=== PATIENT | male | born 1955 | race Two or more races ===

== ENCOUNTER → 2022-05-18 | Day surgery (SDC) | payer OTHER ==
[2022-05-16 12:58] LABS: Basophils # (auto) 0.1 10 ^3/uL (0-0.2); Basophils % (auto) 1.2 % (0.0-2.0); Eosinophils # (auto) 0.2 10 ^3/uL (0-0.8); Eosinophils % (auto) 2.3 % (0.0-7.0); Hemoglobin 12.4 g/dL (13.5-17.5); Lymphocytes # (auto) 2.2 10 ^3/uL (0.4-5.4); Lymphocytes % (auto) 22.9 % (10.0-50.0); Mean Corpuscular Hgb Conc. 31.8 g/dL (32.0-36.0); Mean Corpuscular Volume 62.7 fL (80.0-100.0); Monocytes # (auto) 0.9 10 ^3/uL (0-1.3); Monocytes % (auto) 9.1 % (0.0-12.0); Neutrophils # (auto) 6.1 10 ^3/uL (1.6-8.6); Neutrophils % (auto) 64.5 % (37.0-80.0); Nucleated Red Blood Cells % 0.3 %; Red Blood Cells 6.22 10^6/uL (4.5-5.90); Red Cell Distribution Width 16.5 % (11.8-14.3); White Blood Cell 9.4 10^3/uL (4.4-10.8)
[2022-05-16 13:22] LABS: INR 0.95 (0.9-1.15)
[2022-05-16 13:35] LABS: Calcium 9.4 mg/dL (8.5-10.1)
[2022-05-16 13:42] LABS: Albumin 4.1 g/dL (3.4-5.0); BUN/Creatinine Ratio 23.2; Bilirubin, Total 1.1 mg/dL (0.2-1.0); Potassium 4.2 mmol/L (3.5-5.1); Total Protein 7.2 g/dL (6.4-8.2)
[~2022-05-18] VITALS: Ht 180.3 cm; Wt 90.7 kg
[~2022-05-18] MED LIST: ATO40T PO; CETI10TA2 PO; CHOL200021 PO; DIAZ10TA3 PO; FAMO-68 PO; FLUT110A IN; GLUC1CAP11 PO; HYDR-4072 PO; INSRTEST IV; INSUINJ37 SC; LOPE1TAB9 PO; LOSA25TA38 PO; METF-370 PO; MULT-1018 OR; ONDA-144 PO; VALA1TAB PO; [UNRECOGNIZED DRUG - CODE] PO
[2022-05-18] MEDS: fentaNYL CITRATE 100 MCG/2 ML VL ONE ×3 (14:29→14:37)
[2022-05-18] MEDS: diphenhdrAMINE HCL 50 MG/1 ML VL ONE ×2 (14:29→14:30)
[2022-05-18] MEDS: MIDAZOLAM HCL 2MG/2ML 2ml VIAL (1mg/ml) ONE ×4 (14:29→14:42)
[2022-05-18 15:30] VITALS: BP 137/83
== END | disposition home or self-care (01) ==
LOC: GI 12:39
PROVIDERS: ATTEND Internal Medicine Gastroenterology
DX: Z12.11 Encounter for screening for malignant neoplasm of colon (principal); K63.5 Polyp of colon; K57.30 Diverticulosis of large intestine without perforation or abscess without bleeding; K64.8 Other hemorrhoids; E11.9 Type 2 diabetes mellitus without complications; I10 Essential (primary) hypertension; E78.5 Hyperlipidemia, unspecified; F41.9 Anxiety disorder, unspecified; Z88.6 Allergy status to analgesic agent; Z79.4 Long term (current) use of insulin; Z79.84 Long term (current) use of oral hypoglycemic drugs; Z88.1 Allergy status to other antibiotic agents; Z79.891 Long term (current) use of opiate analgesic; Z79.899 Other long term (current) drug therapy; Z98.890 Other specified postprocedural states; Z20.822 Contact with and (suspected) exposure to COVID-19
CPT/HCPCS: 36415; 45380; 80053; 82962; 85025; 85610; 85730; J1200; J2250; J3010; J7030; U0003